=== PATIENT | female | born 1980 | race Caucasian/White ===

== ENCOUNTER 2017-05-12 07:37 | Outpatient (CLI) | payer OTHER | END 2017-05-12 07:41 | disposition home or self-care (01) | LOC: SONOGRAMA 07:37 | DX: E04.2 Nontoxic multinodular goiter (principal) ==

== ENCOUNTER 2021-08-22 08:58 | Outpatient (CLI) | payer OTHER | END 2021-08-22 09:01 | disposition home or self-care (01) | LOC: SONOGRAMA 08:58 | PROVIDERS: ATTEND Pathology Anatomic Pathology & Clinical Pathology | DX: E04.2 Nontoxic multinodular goiter (principal) ==